=== PATIENT | male | born 1945 | race African-American/Black ===

== ENCOUNTER 2019-10-24 08:59 | Observation (INO) ==
[2019-10-24 10:06] LABS: Basophils # 0.1 10*3/uL (0.0-0.2); Basophils % 0.7 % (0.0-0.8); Eosinophils # 0.1 10*3/uL (0.0-0.87); Hematocrit 23.6 VOL% (42.0-52.0); Hemoglobin 7.8 GM/DL (14.0-18.0); Immature Granulocytes % 0.6 %; Immature Granulocytes Absolute 0.07 #; Lymphocytes # 0.9 10*3/uL (1.4-4.0); Lymphocytes % 8.4 % (21.2-54.2); Mean Corpuscular HGB Conc 33.1 GM/DL (32-36); Mean Corpuscular Volume 83.1 FL (87-102); Mean Platelet Volume 8.4 FL (9.6-12.0); Monocytes % 5.6 % (1.7-12.7); Neutrophils % 83.7 % (38.7-73.9); Platelet Count 428 T/CUMM (130-400); Red Blood Count 2.84 MC/CUMM (3.8-5.5); Red Cell Distribution Width 13.3 % (9.3-17.3); White Blood Count 11.1 T/CUMM (4-12)
[2019-10-24] MEDS ORDERED: ONDANSETRON 4 MG/2 ML VIAL IV PRN (10:06)
[2019-10-24] MEDS ORDERED: PROMETHAZINE 25 MG/1 ML VIAL IM PRN (10:06)
[2019-10-24] MEDS ORDERED: ACETAMINOPHEN 325 MG TABLET PO PRN (10:06)
[2019-10-24 10:17] LABS: Basophils # 0.1 10*3/uL (0.0-0.2); Basophils % 0.7 % (0.0-0.8); Eosinophils # 0.1 10*3/uL (0.0-0.87); Hematocrit 23.6 VOL% (42.0-52.0); Hemoglobin 7.7 GM/DL (14.0-18.0); Immature Granulocytes % 0.5 %; Immature Granulocytes Absolute 0.06 #; Lymphocytes # 0.9 10*3/uL (1.4-4.0); Lymphocytes % 7.8 % (21.2-54.2); Mean Corpuscular HGB Conc 32.6 GM/DL (32-36); Mean Corpuscular Volume 82.8 FL (87-102); Mean Platelet Volume 8.5 FL (9.6-12.0); Monocytes % 5.4 % (1.7-12.7); Neutrophils % 84.6 % (38.7-73.9); Platelet Count 439 T/CUMM (130-400); Red Blood Count 2.85 MC/CUMM (3.8-5.5); Red Cell Distribution Width 13.4 % (9.3-17.3); White Blood Count 11.3 T/CUMM (4-12)
[2019-10-24 10:23] LABS: Calcium 8.7 MG/DL (8.5-10.1); Osmolality,Calculated 270.8 MOS/KG (273-304)
[2019-10-24] MEDS ORDERED: SODIUM CHLORIDE 0.9% 1,000 ML IV PRN (10:23)
[2019-10-24 11:08] LABS: Folate 10.4 NG/ML (5.4-24.0); Vitamin B12 > 2000 PG/ML (211-911)
[2019-10-24 11:29] LABS: Sedimentation Rate-Westergren 125 MM/HR (0-20)
[2019-10-24] MEDS: AMOXICILLIN/CLAV 875 MG TABLET PO SCH ×2 (13:52→20:50)
[2019-10-24] MEDS: DILTIAZEM CD 120 MG CAPSULE PO SCH (13:52)
[2019-10-24] MEDS: BICALUTAMIDE 50 MG TABLET PO SCH (13:52)
[2019-10-24] MEDS: PANTOPRAZOLE 40 MG TABLET PO SCH (13:53)
[2019-10-24] MEDS: POTASSIUM CHLORIDE 20 MEQ TABLET PO SCH ×4 (13:53→18:15)
[2019-10-24] MEDS ORDERED: INFLUENZA VIRUS VACCINE 0.5 ML SYRINGE IM ONE (14:48)
[2019-10-25 06:05] LABS: Albumin 3.5 G/DL (3.4-5.0); Bilirubin,Total 2.4 MG/DL (0.2-1.0); Calcium 9.1 MG/DL (8.5-10.1); Total Protein 7.7 G/DL (6.4-8.3)
[2019-10-25 07:11] LABS: Basophils # 0.1 10*3/uL (0.0-0.2); Basophils % 0.6 % (0.0-0.8); Eosinophils # 0.2 10*3/uL (0.0-0.87); Eosinophils % 1.5 % (0.00-10.9); Hematocrit 33.8 VOL% (42.0-52.0); Immature Granulocytes % 0.4 %; Immature Granulocytes Absolute 0.06 #; Lymphocytes # 1.5 10*3/uL (1.4-4.0); Lymphocytes % 9.9 % (21.2-54.2); Mean Corpuscular HGB Conc 32.2 GM/DL (32-36); Mean Corpuscular Volume 81.6 FL (87-102); Mean Platelet Volume 8.6 FL (9.6-12.0); Monocytes % 4.6 % (1.7-12.7); Platelet Count 460 T/CUMM (130-400); Red Blood Count 4.14 MC/CUMM (3.8-5.5); Red Cell Distribution Width 14.9 % (9.3-17.3); White Blood Count 14.9 T/CUMM (4-12)
[2019-10-25 07:17] LABS: Hemoglobin 10.9 GM/DL (14.0-18.0)
[2019-10-25] MEDS: BICALUTAMIDE 50 MG TABLET PO SCH (09:01)
[2019-10-25] MEDS: DILTIAZEM CD 120 MG CAPSULE PO SCH (09:01)
[2019-10-25] MEDS: PANTOPRAZOLE 40 MG TABLET PO SCH (09:01)
[2019-10-25] MEDS: AMOXICILLIN/CLAV 875 MG TABLET PO SCH (09:01)
[2019-10-25 15:51] VITALS: BP 99/68
[2019-10-27 11:07] LABS: Hemoglobin A1 (Alkaline) 60.1 % (96.5-98.5); Hemoglobin A2 (Alkaline) 2.7 % (1.5-3.5)
[2019-10-27 11:08] LABS: Hemoglobin S (Alkaline) 37.2 %
== END 2019-10-25 18:06 | disposition home or self-care (01) ==
LOC: N.EDINP 08:59 → N.ED 08:59 → N.4E 11:57
PROVIDERS: ADMIT Internal Medicine Cardiovascular Disease; ATTEND Internal Medicine Cardiovascular Disease